=== PATIENT | female | born 1955 | race Caucasian/White ===

== ENCOUNTER 2017-11-06 08:00 | Outpatient (CLI) | payer MEDICARE ==
[2016-04-03 08:20] VITALS: BMI 20.8
[~2017-11-06 08:00] MED LIST: ADVAIR 250/501 DISK INH; ATIVAN1 MG PO; BAYER CHEWABLE81 MG PO; BENADRYL50 MG PO; CETIRIZINE HCL5 MG PO; COREG6.25 MG PO; CYCLOBENZAPRINE10 MG PO; HYDROCODONE-APA1 TAB PO; IPRAT-ALBUT 0.5-3 ML UPD; LIPITOR20 MG PO; NITROMIST8.5 GM SL; PLAVIX75 MG PO; PREDNISONE10 MG PO; SPIRIVA18 MCG INH; SYMBICORT 80-10.2 GM INH; VENTOLIN HFA18 GM INH; ZANTAC150 MG PO; ZOLOFT25 MG PO
== END 2017-11-06 11:02 | disposition home or self-care (01) ==
LOC: D.MAMMO 08:00
DX: Z12.31 Encounter for screening mammogram for malignant neoplasm of breast (principal)

== ENCOUNTER 2019-07-23 11:23 | Inpatient (IN) | payer MEDICARE ==
[~2019-07-23] VITALS: Ht 166.4 cm; Wt 50.0 kg
[2019-07-23 12:00] VITALS: BP 139/76
--- NOTE | 2019-07-23 12:00 | NUR ---
NEW PATIENT ADMIT VIA WC ACCOMPANIED BY HOSPITAL PERSONNEL AND FAMILY. PATIENT TRANSFERERED TO BED WITHOUT DIFFICULTY. PATIENT IS AWAKE, ALERT AND ORIENTED X 4. PATIENT IS NO OBVIOUS DISTRESS. PATIENT DENIES ANY NEEDS OR PAIN. WILL CONTINUE WITH PLAN OF CARE. SR UP X 2 BED IN LOW POSITION AND CALL LIGHT IN REACH.
[2019-07-23] MEDS ORDERED: COMBIVENT RESPIM4 GM INH (12:11)
[2019-07-23] MEDS ORDERED: BENADRYL25 MG PO (12:12)
[2019-07-23 12:58] LABS: BASOPHILS 0.4 % (0-2); EOSINOPHILS 9.3 % (0-7); HEMATOCRIT 48.7 % (36.0-48.0); IMMATURE GRANULOCYTES 0.1 % (0-5); LYMPHOCYTES 23.2 % (15-50); MCH 31.8 pg (26.0-34.0); MCHC 32.9 g/dL (31.0-37.0); MCV 96.8 fL (80.0-100.0); MEAN PLATELET VOLUME 9.8 fL (7.4-10.4); MONOCYTES 7.2 % (2-11); NEUTROPHILS 59.8 % (40-80); PLATELET COUNT 264 10x3/uL (130-400); RBC 5.03 10x6/uL (4.00-5.40); RDW 13.1 % (11.5-14.5); WBC 7.8 10x3/uL (4.8-10.8)
[2019-07-23 13:21] LABS: APTT 30.5 SECONDS (22.8-39.4); INR 0.95 (0.85-1.17); PROTIME 12.7 SECONDS (11.6-15.0)
[2019-07-23 13:43] LABS: ALBUMIN 3.8 g/dL (3.4-5.0); ALKALINE PHOSPHATASE 87 U/L (30-120); ALT (SGPT) 16 U/L (10-68); BILIRUBIN - TOTAL 0.58 mg/dL (0.2-1.3); CALC OSMOLALITY 261 mosm/kg (275-300); CALCIUM 9.4 mg/dL (8.5-10.1); CARBON DIOXIDE 24.5 mmol/L (21.0-32.0); CHLORIDE - SERUM 95 mmol/L (98-107); CKMB 3.1 U/L (0.0-3.6); CREATINE KINASE 96 UL (21-215); CREATININE - SERUM 0.9 mg/dL (0.6-1.3); GLUCOSE 92 mg/dL (74-106); POTASSIUM - SERUM 5.1 mmol/L (3.5-5.1); PROTEIN - SERUM 6.8 g/dL (6.4-8.2); SODIUM 131 mmol/L (136-145); UREA NITROGEN 10 mg/dL (7-18); eGFR NON AFRICAN AMERICAN 67 mL/min (90-120)
[2019-07-23 13:53] LABS: TROPONIN-I 0.108 ng/mL (0.000-0.060)
[2019-07-23 14:19] LABS: D-DIMER-QUANTITATIVE < 0.27 ug/mLFEU (0.20-0.54)
[2019-07-23 15:38] VITALS: BP 144/96
[2019-07-23 18:54] LABS: CKMB 3.1 U/L (0.0-3.6); CREATINE KINASE 76 UL (21-215)
[2019-07-23 18:57] LABS: TROPONIN-I 0.074 ng/mL (0.000-0.060)
[2019-07-23 20:18] VITALS: BP 129/110
[2019-07-24] VITALS (8 sets, daily range): BP systolic 101–139; BP diastolic 62–79; BMI 18.0
[2019-07-24 01:30] LABS: CKMB 1.6 U/L (0.0-3.6); CREATINE KINASE 57 UL (21-215)
[2019-07-24 05:55] LABS: BASOPHILS 0 % (0-2); EOSINOPHILS 0 % (0-7); HEMATOCRIT 44.5 % (36.0-48.0); HEMOGLOBIN 14.5 g/dL (12-16); LYMPHOCYTES 21.4 % (15-50); MCH 31.3 pg (26.0-34.0); MCHC 32.6 g/dL (31.0-37.0); MCV 95.9 fL (80.0-100.0); MEAN PLATELET VOLUME 10.3 fL (7.4-10.4); MONOCYTES 4.5 % (2-11); NEUTROPHILS 74.1 % (40-80); PLATELET COUNT 299 10x3/uL (130-400); RBC 4.64 10x6/uL (4.00-5.40); RDW 13.3 % (11.5-14.5)
[2019-07-24 06:36] LABS: CALCIUM 8.9 mg/dL (8.5-10.1); CARBON DIOXIDE 24.6 mmol/L (21.0-32.0); CHLORIDE - SERUM 99 mmol/L (98-107); MAGNESIUM - SERUM 2.1 mg/dL (1.8-2.4); SODIUM 134 mmol/L (136-145); UREA NITROGEN 10 mg/dL (7-18)
[2019-07-24 06:37] LABS: WBC 3.8 10x3/uL (4.8-10.8)
[2019-07-24 06:41] LABS: CALC OSMOLALITY 271 mosm/kg (275-300); CREATININE - SERUM 0.6 mg/dL (0.6-1.3); GLUCOSE 180 mg/dL (74-106); POTASSIUM - SERUM 4.6 mmol/L (3.5-5.1); eGFR NON AFRICAN AMERICAN > 90 mL/min (90-120)
[2019-07-24 09:17] LABS: BACTERIA FEW /hpf (NEGATIVE); BILIRUBIN NEGATIVE (NEGATIVE); EPITHELIAL CELLS OCC /hpf (0-5); GLUCOSE 1000 mg/dL (NEGATIVE); KETONE MODERATE mg/dL (NEGATIVE); NITRITE NEGATIVE (NEGATIVE); RED CELLS - URINE OCC /hpf (0-5); SPECIFIC GRAVITY 1.015 (1.005-1.020); UROBILINOGEN NORMAL (NORMAL); WHITE CELLS - URINE OCC /hpf (NEGATIVE)
--- NOTE | 2019-07-24 20:00 | NUR ---
ALERT RESTING IN BED DENIES PAIN OR NEEDS AT THIS TIME, SEE SHIFT ASSESSMENT, CALL DEVEN WERNER
[2019-07-25 00:12] VITALS: BP 130/71
[2019-07-25 04:30] VITALS: BP 123/55
[2019-07-25 04:45] LABS: BASOPHILS 0 % (0-2); EOSINOPHILS 0 % (0-7); HEMATOCRIT 40.7 % (36.0-48.0); HEMOGLOBIN 12.9 g/dL (12-16); IMMATURE GRANULOCYTES 0.1 % (0-5); LYMPHOCYTES 10.8 % (15-50); MCH 31.2 pg (26.0-34.0); MCHC 31.7 g/dL (31.0-37.0); MEAN PLATELET VOLUME 10.1 fL (7.4-10.4); MONOCYTES 4.3 % (2-11); NEUTROPHILS 84.8 % (40-80); PLATELET COUNT 253 10x3/uL (130-400); RBC 4.14 10x6/uL (4.00-5.40); RDW 13.5 % (11.5-14.5)
[2019-07-25 04:54] LABS: CALCIUM 8.6 mg/dL (8.5-10.1); CARBON DIOXIDE 28.4 mmol/L (21.0-32.0); CHLORIDE - SERUM 103 mmol/L (98-107); MAGNESIUM - SERUM 1.9 mg/dL (1.8-2.4); SODIUM 140 mmol/L (136-145)
[2019-07-25 04:55] LABS: CALC OSMOLALITY 277 mosm/kg (275-300); CREATININE - SERUM 0.8 mg/dL (0.6-1.3); GLUCOSE 131 mg/dL (74-106); POTASSIUM - SERUM 3.8 mmol/L (3.5-5.1); UREA NITROGEN 5 mg/dL (7-18); eGFR NON AFRICAN AMERICAN 76 mL/min (90-120)
[2019-07-25 04:58] LABS: MCV 98.3 fL (80.0-100.0); WBC 10.2 10x3/uL (4.8-10.8)
--- NOTE | 2019-07-25 08:48 | EC ---
PATIENT:MINDI NAYAK DATE OF SERVICE: 07/23/19 SEX: F MEDICAL RECORD: [id number] DATE OF : 53 LOCATION:D.M2 D.210 AGE OF PATIENT: 64 ADMISSION DATE: 07/23/19 REFERRING PHYSICIAN: INTERPRETING PHYSICIAN: COLLIN GÓMEZ MD ECHOCARDIOGRAM REPORT ECHO CHARGES 5 ECHO LIMITED Date: 07/23/19 CLINICAL DIAGNOSIS: DYSPNEA ECHOCARDIOGRAPHIC MEASUREMENTS (adult normal given) AC root (d.<3.7cm) 2.6 cm LV Septum d (<1.2 cm> 1.0 cm Valve Excursion 1.2 cm LV Septum (systole) 1.2 cm Left Atria (s.<4.0cm> 2.4 cm LVPW d(<1.2cm) 1.2 cm RV (d.<2.3cm) 2.9 cm LVPW (sytole) 1.6 cm LV diastole(<5.6CM) 4.5 cm MV E-F(>70mm/sec) cm LV systole 3.6 cm LVOT Diameter cm MV exc.(>10mm) cm Est.ejection fraction (50-75%) % DOPPLER: LVIT cm/sec A cm/sec E cm/sec LA cm/sec RVSP 15 mmHg LVOT cm/sec AOP1/2T m/s Asc. Ao cm/sec RVOT 75 cm/sec RA cm/sec PA 107 cm/sec AV Gradient Peak mmHg AV Mean mmHg AV Area cm MV Gradient Peak mmHg MV Mean mmHg MV Area cm COMMENTS: Partnership Manager: 2 JOLEEN BUCK Design Verification Engineer: 3 Dr. Matthew TAPE# PACS Pericardial Effusion Y DATE OF SERVICE: Adequate 2D, color flow imaging, spectral Doppler, and M-Mode Borderline LVH. LV internal dimensions are normal. Wall motion appears normal. EF is greater than or equal to 55%. Aortic valve shows good valve excursion. No significant AI. Left atrium is normal at 2.4 cm. Mitral valve shows no prolapse. Trace MR. Right-sided chambers are grossly normal. Trace TR. TRANSINT:[id number] Voice Confirmation ID: [id number] DOCUMENT ID: [id number] ECHOCARDIOGRAM REPORT [id number] MALINIMINDI SHIELDS COLLIN GÓMEZ MD at 0848 CC: [id number] DICTATION DATE: 07/24/19 1449 DIRECTOR OF ENTERPRISE APPLICATIONS: 07/24/19 1611 ADM IN [facility] [address] [id number]
[2019-07-25 10:51] VITALS: Ht 166.4 cm; Wt 50.0 kg
[2019-07-25 12:59] VITALS: BP 133/89
--- NOTE | 2019-07-25 14:54 | MORECARE ---
CASE MANAGEMENT DISCHARGE SUMMARY PATIENT: MINDI NAYAK UNIT: [id number] ADM DATE: 07/23/19 AGE: 64 : 54 SEX: F ROOM/BED: D.2106 AUTHOR: KATIE GIBSON PHYSICIAN: REFERRING PHYSICIAN: JERRY RAINES MD DATE OF SERVICE: 07/25/19 Discharge Plan Patient Name: MINDI NAYAK Facility: [facility]:[place] : 1955 Planned Disposition: Home Anticipated Discharge Date: Discharge Date: Expected LOS: Initial Reviewer: [email or web address] Initial Review Date: 07/23/2019 Generated: 07/25/19 3:54 pm Patient Name: MINDI NAYAK Page 19861 at 1454 All edits/amendments must be made on the electronic document DICTATION DATE: 07/25/191453 SKIN THERAPIST: ROSAURA 07/25/191453 RPT#: [id number] DC DATE: STATUS: ADM IN [facility] [address] [place] [address] END OF REPORT
--- NOTE | 2019-07-25 15:02 | MORECARE ---
CASE MANAGEMENT DISCHARGE SUMMARY PATIENT: MINDI NAYAK UNIT: [id number] ADM DATE: 07/23/19 AGE: 64 : 54 SEX: F ROOM/BED: D.5143 AUTHOR: KATIE GIBSON PHYSICIAN: REFERRING PHYSICIAN: MICHAEL RAINES MD DATE OF SERVICE: 07/25/19 Discharge Plan Patient Name: MINDI NAYAK Facility: [facility]:[place] : 1955 Planned Disposition: Home Anticipated Discharge Date: Discharge Date: Expected LOS: Initial Reviewer: [email or web address] Initial Review Date: 07/23/2019 Generated: 07/25/19 4:02 pm Comments DCP- Discharge Planning Updated by [id number]: Paula Felton on 07/25/19 2:[address] Patient Name: MINDI NAYAK Encounter No: [id number] : 1955 Primary Insurance: [facility] MEDICARE SOLUTIONS Anticipated DC Date: Planned Disposition: Home DCP ANTICIPATED DC NEEDS: PATIENT STATES SHE WILL NEED OXYGEN AT HOME. STATES SHE IS NORMALLY 90 TO 91% ON ROOM AIR, BUT IS SYMPTOMATIC AND THS INCREASES HER FALLS. CM met with patient to complete initial dc planning assessment. CM educated patient on the CM role and verbal consent given by patient to complete assessment. CM verified patient's address, phone number, and emergency contact phone numbers. Patient lives at home with her son (), Daughter in law (Mihaela), and grand son. they can be reached at [phone]. At discharge patient plans to return home and feels this is a safe discharge. CM discussed availability of home health, rehab services, and medical equipment. Patient signed choice letter for [facility] for the anticipated need for oxygen, but refused the possibility of home health. Stated her dtr in law is a nurse. Transportation provider at discharge will be her son . CM will continue to follow and will assist as needed with dc plans/needs. DC IMM delivered, explained, signed by the patient, and placed in his chart. Signed form also left with patient. Paula Felton MSN,RN,CM DCPIA - Discharge Planning Initial Assessment Updated by [email or web address]: Paula Felton on 07/25/19 2:54 pm * How many steps to enter\exit or inside your home? 0/0 * PCP DR AYALA * Pharmacy [facility] * Preadmission Environment Home with Family * ADLs Independent * Equipment None * List name and contact numbers for known caregivers / representatives who currently or will assist patient after discharge: (SON)- [phone] MIHAELA DTR IN LAW [phone] * Verbal permission to speak to the caregivers and representatives has been obtained from the patient. Yes * Community resources currently utilized None * Additional services required to return to the preadmission environment? Yes * Can the patient safely return to the preadmission environment? No * Has this patient been hospitalized within the prior 30 days at any hospital? No Coverage Notice Reviewer: [id number] Felton Notice Issued Date-Time: 07/25/2019 14:30 Notice Type: Patient Choice Letter Notice Delivered To: Patient Relationship to Patient: Paint Factory Worker Name: Delivery Method: HAND - Hand Delivered Padmini Days: Prior Verbal Notification: Recipient Understood Notice: Yes Recipient Signature: Yes Med Rec Note Co-signed by Attending: Coverage Notice Comment: Reviewer: [id number] Felton Notice Issued Date-Time: 07/25/2019 14:33 Notice Type: IM Discharge Notice Notice Delivered To: Patient Relationship to Patient: Paint Factory Worker Name: Delivery Method: HAND - Hand Delivered Padmini Days: Prior Verbal Notification: Recipient Understood Notice: Yes Recipient Signature: Yes Med Rec Note Co-signed by Attending: Coverage Notice Comment: Last DP export: 07/25/19 1:54 p Patient Name: MINDI NAYAK Page 85097 at 1502 All edits/amendments must be made on the electronic document DICTATION DATE: 07/25/19 1502 FURNACE OPERATOR OIL OR GAS: ROSAURA 07/25/19 1502 RPT#: [id number] DC DATE: STATUS: ADM IN [facility] [address] [place] [address] END OF REPORT
[2019-07-25 18:16] VITALS: BP 129/74
--- NOTE | 2019-07-25 19:10 | NUR ---
BEDSIDE REPORT RECEIVED FROM DAY SHIFT, PT CARE ASSUMED. INTRODUCED SELF AND WROTE NAME ON BOARD. PT LYING IN BED WATCHING TV, AAOX4. DENIES ANY NEEDS AT THIS TIME. BED IN LOWEST POSITION, SR X2, CALL LIGHT WITHIN REACH. WILL CONTINUE TO MONITOR.
[2019-07-25 20:00] VITALS: BP 139/82
[2019-07-26] VITALS: BP 134/69; BP 140/78
[2019-07-26 04:30] VITALS: BP 152/82
[2019-07-26 04:40] LABS: BASOPHILS 0 % (0-2); EOSINOPHILS 0 % (0-7); HEMATOCRIT 42.9 % (36.0-48.0); HEMOGLOBIN 13.5 g/dL (12-16); IMMATURE GRANULOCYTES 0.2 % (0-5); LYMPHOCYTES 10.9 % (15-50); MCH 31.4 pg (26.0-34.0); MCHC 31.5 g/dL (31.0-37.0); MCV 99.8 fL (80.0-100.0); MEAN PLATELET VOLUME 10.3 fL (7.4-10.4); MONOCYTES 4.2 % (2-11); NEUTROPHILS 84.7 % (40-80); PLATELET COUNT 261 10x3/uL (130-400); RDW 13.6 % (11.5-14.5); WBC 9.7 10x3/uL (4.8-10.8)
[2019-07-26 04:52] LABS: CALC OSMOLALITY 270 mosm/kg (275-300); CARBON DIOXIDE 28.7 mmol/L (21.0-32.0); CHLORIDE - SERUM 100 mmol/L (98-107); CREATININE - SERUM 0.6 mg/dL (0.6-1.3); GLUCOSE 125 mg/dL (74-106); MAGNESIUM - SERUM 1.9 mg/dL (1.8-2.4); POTASSIUM - SERUM 3.7 mmol/L (3.5-5.1); SODIUM 136 mmol/L (136-145); eGFR NON AFRICAN AMERICAN > 90 mL/min (90-120)
[2019-07-26 04:55] LABS: UREA NITROGEN 7 mg/dL (7-18)
--- NOTE | 2019-07-26 07:00 | NUR ---
RECEIVED REPORT. ASSUMED CARE OF PATIENT. PATIENT RESTING WELL WITH EYES CLOSED. RESP EVEN AND UNLABORED. CALL LIGHT WITHIN REACH. NO DISTRESS.
[2019-07-26 08:21] VITALS: BP 131/78
--- NOTE | 2019-07-26 12:00 | NUR ---
PATIENT RESTING IN BED WITH EYES CLOSED. EASILY AROUSED TO LET PATIENT KNOW HER LUNCH TRAY IS AT BEDSIDE. NO DISTRESS. CALL LIGHT WITHIN REACH.
[2019-07-26 12:58] VITALS: BP 137/75
--- NOTE | 2019-07-26 15:00 | NUR ---
RESTING IN BED. NO DISTRESS. CALL LIGHT WITHIN REACH.
[2019-07-26 17:16] VITALS: BP 145/83
--- NOTE | 2019-07-26 17:42 | NUR ---
CONSUMED PM MEAL. DENIES NEEDS AT THIS TIME. CALL LIGHT WITHIN REACH.
--- NOTE | 2019-07-26 19:39 | NUR ---
REPORT RECIEVED. BEDSIDE SHIFT REPORT COMPLETE. PT UP IN BED WATCHING TV. FAMILY PRESENT AT BEDSIDE. NO S/SX OF DISTRESS OBSERVED AT THIS TIME. CALL LIGHT IN REACH. NO NEEDS EXPRESSED. WILL CTM.
[2019-07-26 20:00] VITALS: BP 161/81
[2019-07-27 03:06] LABS: IMMUNOGLOBULIN E 134 IU/mL (6-495)
[2019-07-27 04:00] VITALS: BP 138/79
[2019-07-27 04:49] LABS: BASOPHILS 0 % (0-2); EOSINOPHILS 1.2 % (0-7); HEMATOCRIT 41.8 % (36.0-48.0); HEMOGLOBIN 13.3 g/dL (12-16); IMMATURE GRANULOCYTES 0.1 % (0-5); LYMPHOCYTES 26.9 % (15-50); MCH 31.5 pg (26.0-34.0); MCHC 31.8 g/dL (31.0-37.0); MCV 99.1 fL (80.0-100.0); MEAN PLATELET VOLUME 10.4 fL (7.4-10.4); MONOCYTES 13.3 % (2-11); NEUTROPHILS 58.5 % (40-80); PLATELET COUNT 246 10x3/uL (130-400); RBC 4.22 10x6/uL (4.00-5.40); RDW 13.7 % (11.5-14.5); WBC 7.8 10x3/uL (4.8-10.8)
[2019-07-27 05:00] LABS: CALCIUM 8.7 mg/dL (8.5-10.1); CARBON DIOXIDE 29.4 mmol/L (21.0-32.0); CHLORIDE - SERUM 105 mmol/L (98-107); CREATININE - SERUM 0.6 mg/dL (0.6-1.3); GLUCOSE 111 mg/dL (74-106); MAGNESIUM - SERUM 2.1 mg/dL (1.8-2.4); SODIUM 142 mmol/L (136-145); eGFR NON AFRICAN AMERICAN > 90 mL/min (90-120)
[2019-07-27 05:01] LABS: CALC OSMOLALITY 282 mosm/kg (275-300); UREA NITROGEN 10 mg/dL (7-18)
[2019-07-27 05:02] LABS: POTASSIUM - SERUM 2.9 mmol/L (3.5-5.1)
--- NOTE | 2019-07-27 07:00 | NUR ---
RECEIVED REPORT. ASSUMED CARE OF PATIENT. PATIENT LYING IN BED WITH EYES OPEN. RESP EVEN AND UNLABORED. PATIENT DENIES ANY NEEDS AT THIS TIME. CALL LIGHT WITHIN REACH. NO DISTRESS.
[2019-07-27 08:08] VITALS: BP 147/83
--- NOTE | 2019-07-27 09:02 | NUR ---
2ND DOSE OF K+ PER ELECTROLYTE PROTOCOL ADMINISTERED.
[2019-07-27] MEDS ORDERED: OMNICEF300 MG PO (11:01)
[2019-07-27] MEDS ORDERED: VIBRAMYCIN 100100 MG PO (11:01)
[2019-07-27] MEDS ORDERED: PREDNISONE10 MG PO (11:04)
[2019-07-27 11:44] VITALS: BP 149/83
--- NOTE | 2019-07-27 11:54 | NUR ---
PATIENT OXYGEN SATURATION ON ROOM IS 93-94%. PATIENT TRYING TO CONSUME NOON MEAL AT THIS TIME. WILL COMPLETE WALK TEST AFTER PATIENT HAS COMPLETED MEAL.
--- NOTE | 2019-07-27 12:55 | NUR ---
WALK TEST COMPLETED WITH PATIENT. PATIENT DESAT TO 86% WITH NO OXYGEN THERAPY. PATIENT ASSISTED BACK TO BED, OXYGEN APPLIED AND PATIENT OXYGEN SATURATION RETURN TO 94% AT REST. NOTIFIED. PATIENT WILL BE DISCHARGED TO HOME ON OXYGEN THERAPY- PORTABLE AND STATIONARY. CASE MANAGEMENT MADE AWARE AND ARE SETTING UP SERVICES WITH [facility].
--- NOTE | 2019-07-27 13:41 | NUR ---
TELEMETRY REMOVED AND RETURNED TO [facility] PICKER 22 GAUGE IV REMOVED FROM LEFT FOREARM. CATHETER TIP INTACT. NO BLEEDING FROM SITE. 2X2 GAUZE APPLIED AND SECURED WITH BANDAID. TOLERATED IV REMOVAL WELL. DISCHARGE INSTRUCTIONS PROVIDED TO PATIENT. PATIENT VERBALIZED UNDERSTANDING OF ALL INSTRUCTIONS PROVIDED. PATIENT NOW WAITING ON [facility] TO DELIVER PORTABLE OXYGEN.
--- NOTE | 2019-07-27 14:13 | MORECARE ---
CASE MANAGEMENT DISCHARGE SUMMARY PATIENT: MINDI NAYAK UNIT: [id number] ADM DATE: 07/23/19 AGE: 64 : 54 SEX: F ROOM/BED: D.4669 AUTHOR: ARTHUR,DOC PHYSICIAN: REFERRING PHYSICIAN: MICHAEL RAINES MD DATE OF SERVICE: 07/27/19 Discharge Plan Patient Name: MINDI NAYAK Facility: [facility]:[place] : 1955 Planned Disposition: Home Anticipated Discharge Date: Discharge Date: Expected LOS: Initial Reviewer: [email or web address] Initial Review Date: 07/23/2019 Generated: 07/27/19 3:12 pm Comments DCP- Discharge Planning Updated by [email or web address]: Gabriela Reynaga on 07/27/19 1:[address] LATE ENTRY 1110 CM REC NOTIFICATION OF DISCHARGE. REVIEWED CLINICAL. SPOKE W/ PRIMARY NURSE, JÚNIOR. THE PATIENT HAS BEEN ON NASAL O2. CM REQUESTED VERIFICATION OF STATUS ONE NOTE STATES SHE IS ON ROOM AIR AND THE RESPIRATORY NOTE STATES SHE IS ON 2/L. REQUESTED O2 SAT READINGS ON ROOM AIR AT REST AND WITH ACTIVITY 1300 - RECEIVED O2 SAT READINGS OF 94 % ON ROOM AIR AT REST. O2 SAT ON ROOM AIR W/ EXERCISE 86%. O2 REAPPLIED AT 2.5 LITERS AND EXERCISE O2 SAT INCREASED TO 94%. PRIMARY NURSE, JÚNIOR, NOTIFIED DR FERNANDEZ. OXYGEN ORDER RECEIVED. TC TO [facility] EM[facility]GENCY DEPARTMENT INFORMATION GIVEN. REC CB FROM SERVICE. LEONARDO HAS BEEN NOTIFIED. INSTRUCTED TO FAX H/P, PULM CONSULT AND MD VASYL ORDER AND TESTING INFORMATION TO [phone]. PORTABLE TO BE DELIVERED TO THE PATIENT'S ROOM. 1344 -REC TC FROM [facility] W/ [facility]. REVIEWED ORDER. FAXED SAME INFORMATION ABOVE TO [phone]. SHE CONFIRMS THE DELIVERY TO THE PATIENT'S BEDSIDE. DCP- Discharge Planning Updated by [email or web address]: Paula Felton on 07/25/19 2:[address] Patient Name: MINDI NAYAK Encounter No: [id number] : 1955 Primary Insurance: [facility] MEDICARE SOLUTIONS Anticipated DC Date: Planned Disposition: Home DCP ANTICIPATED DC NEEDS: PATIENT STATES SHE WILL NEED OXYGEN AT HOME. STATES SHE IS NORMALLY 90 TO 91% ON ROOM AIR, BUT IS SYMPTOMATIC AND THS INCREASES HER FALLS. CM met with patient to complete initial dc planning assessment. CM educated patient on the CM role and verbal consent given by patient to complete assessment. CM verified patient's address, phone number, and emergency contact phone numbers. Patient lives at home with her son (), Daughter in law (Mihaela), and grand son. they can be reached at [phone]. At discharge patient plans to return home and feels this is a safe discharge. CM discussed availability of home health, rehab services, and medical equipment. Patient signed choice letter for [facility] for the anticipated need for oxygen, but refused the possibility of home health. Stated her dtr in law is a nurse. Transportation provider at discharge will be her son . CM will continue to follow and will assist as needed with dc plans/needs. DC IMM delivered, explained, signed by the patient, and placed in his chart. Signed form also left with patient. Paula Felton MSN,RN, DCPIA - Discharge Planning Initial Assessment Updated by [id number]: Paula Felton on 07/25/19 2:54 pm * How many steps to enter\exit or inside your home? 0/0 * PCP DR AYALA * Pharmacy [facility] * Preadmission Environment Home with Family * ADLs Independent * Equipment None * List name and contact numbers for known caregivers / representatives who currently or will assist patient after discharge: (SON)- [phone] MIHAELA DTR IN LAW [phone] * Verbal permission to speak to the caregivers and representatives has been obtained from the patient. Yes * Community resources currently utilized None * Additional services required to return to the preadmission environment? Yes * Can the patient safely return to the preadmission environment? No * Has this patient been hospitalized within the prior 30 days at any hospital? No Coverage Notice Reviewer: [id number] Cheli Felton Notice Issued Date-Time: 07/25/2019 14:30 Notice Type: Patient Choice Letter Notice Delivered To: Patient Relationship to Patient: Medical Malpractice Paralegal Name: Delivery Method: HAND - Hand Delivered Padmini Days: Prior Verbal Notification: Recipient Understood Notice: Yes Recipient Signature: Yes Med Rec Note Co-signed by Attending: Coverage Notice Comment: Reviewer: [id number] Felton Notice Issued Date-Time: 07/25/2019 14:33 Notice Type: IM Discharge Notice Notice Delivered To: Patient Relationship to Patient: Medical Malpractice Paralegal Name: Delivery Method: HAND - Hand Delivered Padmini Days: Prior Verbal Notification: Recipient Understood Notice: Yes Recipient Signature: Yes Med Rec Note Co-signed by Attending: Coverage Notice Comment: Last DP export: 07/25/19 2:03 p Patient Name: MINDI NAYAK Page 80726 at 1413 All edits/amendments must be made on the electronic document DICTATION DATE: 07/27/19 141 CIVIL ENGINEER: ROSAURA 07/27/19 1412 RPT#: [id number] DC DATE: STATUS: ADM IN [facility] [address] [place] [address] END OF REPORT
--- NOTE | 2019-07-27 14:26 | NUR ---
[facility] HERE AND DELIVERED OXYGEN TANK TO PATIENT.
--- NOTE | 2019-07-27 14:47 | NUR ---
PATIENT LEFT UNIT AT 1435 VIA WHEELCHAIR. PATIENT DISCHARGED TO HOME WITH HER SON WITH ALL PERSONAL BELONGINGS. PATIENT HAD NEW OXYGEN TANK FROM [facility]. PATIENT DISCHARGED TO HOME IN NO DISTRESS.
--- NOTE | 2019-07-27 16:02 | MORECARE ---
CASE MANAGEMENT DISCHARGE SUMMARY PATIENT: MINDI NAYAK UNIT: [id number] ADM DATE: 07/23/19 AGE: 64 : 54 SEX: F ROOM/BED: D.3288 AUTHOR: ARTHUR,KATIE PHYSICIAN: REFERRING PHYSICIAN: MICHAEL RAINES MD DATE OF SERVICE: 07/27/19 Discharge Plan Patient Name: MINDI NAYAK Facility: [facility]:[place] : 1955 Planned Disposition: Home Anticipated Discharge Date: Discharge Date: 07/27/2019 Expected LOS: Initial Reviewer: [email or web address] Initial Review Date: 07/23/2019 Generated: 07/27/19 5:02 pm Comments DCP- Discharge Planning Updated by [email or web address]: Gabriela Reynaga on 07/27/19 1:[address] LATE ENTRY 1110 CM REC NOTIFICATION OF DISCHARGE. REVIEWED CLINICAL. SPOKE W/ PRIMARY NURSE, JÚNIOR. THE PATIENT HAS BEEN ON NASAL O2. CM REQUESTED VERIFICATION OF STATUS ONE NOTE STATES SHE IS ON ROOM AIR AND THE RESPIRATORY NOTE STATES SHE IS ON 2/L. REQUESTED O2 SAT READINGS ON ROOM AIR AT REST AND WITH ACTIVITY 1300 - RECEIVED O2 SAT READINGS OF 94 % ON ROOM AIR AT REST. O2 SAT ON ROOM AIR W/ EXERCISE 86%. O2 REAPPLIED AT 2.5 LITERS AND EXERCISE O2 SAT INCREASED TO 94%. PRIMARY NURSE, JÚNIOR, NOTIFIED DR FERNANDEZ. OXYGEN ORDER RECEIVED. TC TO [facility] INFORMATION GIVEN. REC CB FROM SERVICE. LEONARDO HAS BEEN NOTIFIED. INSTRUCTED TO FAX H/P, PULM CONSULT AND MD VASYL ORDER AND TESTING INFORMATION TO [phone]. PORTABLE TO BE DELIVERED TO THE PATIENT'S ROOM. 1344 -REC TC FROM [facility] W/ [facility]. REVIEWED ORDER. FAXED SAME INFORMATION ABOVE TO [phone]. SHE CONFIRMS THE DELIVERY TO THE PATIENT'S BEDSIDE. DCP- Discharge Planning Updated by [email or web address]: Paula Felton on 07/25/19 2:[address] Patient Name: MINDI NAYAK Encounter No: [id number] : 1955 Primary Insurance: [facility] MEDICARE SOLUTIONS Anticipated DC Date: Planned Disposition: Home DCP ANTICIPATED DC NEEDS: PATIENT STATES SHE WILL NEED OXYGEN AT HOME. STATES SHE IS NORMALLY 90 TO 91% ON ROOM AIR, BUT IS SYMPTOMATIC AND THS INCREASES HER FALLS. CM met with patient to complete initial dc planning assessment. CM educated patient on the CM role and verbal consent given by patient to complete assessment. CM verified patient's address, phone number, and emergency contact phone numbers. Patient lives at home with her son (), Daughter in law (Mihaela), and grand son. they can be reached at [phone]. At discharge patient plans to return home and feels this is a safe discharge. CM discussed availability of home health, rehab services, and medical equipment. Patient signed choice letter for [facility] for the anticipated need for oxygen, but refused the possibility of home health. Stated her dtr in law is a nurse. Transportation provider at discharge will be her son . CM will continue to follow and will assist as needed with dc plans/needs. DC IMM delivered, explained, signed by the patient, and placed in his chart. Signed form also left with patient. Paula Felton MSN,RN, DCPIA - Discharge Planning Initial Assessment Updated by [id number]: Paula Felton on 07/25/19 2:54 pm * How many steps to enter\exit or inside your home? 0/0 * PCP DR AYALA * Pharmacy [facility] * Preadmission Environment Home with Family * ADLs Independent * Equipment None * List name and contact numbers for known caregivers / representatives who currently or will assist patient after discharge: (SON)- [phone] MIHAELA DTR IN LAW [phone] * Verbal permission to speak to the caregivers and representatives has been obtained from the patient. Yes * Community resources currently utilized None * Additional services required to return to the preadmission environment? Yes * Can the patient safely return to the preadmission environment? No * Has this patient been hospitalized within the prior 30 days at any hospital? No Coverage Notice Reviewer: [email or web address] Cheli Felton Notice Issued Date-Time: 07/25/2019 14:30 Notice Type: Patient Choice Letter Notice Delivered To: Patient Relationship to Patient: Rf Microwave Engineer Name: Delivery Method: HAND - Hand Delivered Padmini Days: Prior Verbal Notification: Recipient Understood Notice: Yes Recipient Signature: Yes Med Rec Note Co-signed by Attending: Coverage Notice Comment: Reviewer: [id number] Cheli Felton Notice Issued Date-Time: 07/25/2019 14:33 Notice Type: IM Discharge Notice Notice Delivered To: Patient Relationship to Patient: Rf Microwave Engineer Name: Delivery Method: HAND - Hand Delivered Padmini Days: Prior Verbal Notification: Recipient Understood Notice: Yes Recipient Signature: Yes Med Rec Note Co-signed by Attending: Coverage Notice Comment: Last DP export: 07/27/19 1:13 p Patient Name: MINDI NAYAK Page 71067 at 1602 All edits/amendments must be made on the electronic document DICTATION DATE: 07/27/19 1602 HEALTHCARE ADVISORY SERVICES MANAGER: ROSAURA 07/27/19 1602 RPT#: [id number] DC DATE:07/27/19 STATUS: DIS IN [facility] [address] [place] [address] END OF REPORT
== END 2019-07-27 14:35 | disposition home or self-care (01) | DRG 189 ==
LOC: D.M2 11:23
PROVIDERS: Emergency Medicine; Internal Medicine Pulmonary Disease; ADMIT Family Medicine; ATTEND Family Medicine
DX: J96.01 Acute respiratory failure with hypoxia (principal); J44.1 Chronic obstructive pulmonary disease with (acute) exacerbation; J44.0 Chronic obstructive pulmonary disease with (acute) lower respiratory infection; I25.10 Atherosclerotic heart disease of native coronary artery without angina pectoris; I10 Essential (primary) hypertension; E78.5 Hyperlipidemia, unspecified; E87.5 Hyperkalemia; J20.9 Acute bronchitis, unspecified; T17.900A Unspecified foreign body in respiratory tract, part unspecified causing asphyxiation, initial encounter; X58.XXXA Exposure to other specified factors, initial encounter; Z87.891 Personal history of nicotine dependence

== ENCOUNTER → 2020-11-04 22:43 | Outpatient (CLI) | payer MEDICARE ==
[2020-04-09 11:26] VITALS: BMI 18.8
[~2020-11-04 22:43] MED LIST changes: +BENADRYL25 MG PO; +COMBIVENT RESPIM4 GM INH; +OMNICEF300 MG PO; +TRAZODONE HCL50 MG PO; +VIBRAMYCIN 100100 MG PO
== END | disposition home or self-care (01) ==
LOC: D.MAMMO 10-26 13:00
PROVIDERS: ATTEND Clinical Nurse Specialist Family Health
DX: Z12.31 Encounter for screening mammogram for malignant neoplasm of breast (principal)